=== PATIENT | female | born 1990 | race Two or more races ===

== ENCOUNTER 2020-02-01 10:49 | Inpatient (IN) | payer BC ==
[~2020-02-01] VITALS: Ht 154.9 cm; Wt 68.2 kg
[2020-02-01] MEDS ORDERED: SODIUM CHLORIDE 0.9% 500 ML IV ONE (10:52)
[2020-02-01] MEDS ORDERED: MORPHINE SULFATE 4 MG/ML SYR/VIAL IV ONE (11:00)
[2020-02-01] MEDS ORDERED: ONDANSETRON HCL 4 MG/2 ML VIAL IV ONE (11:00)
[2020-02-01 11:19] LABS: Basophils # (auto) 0.1 10 ^3/uL (0-0.2); Eosinophils # (auto) 0 10 ^3/uL (0-0.8)
[2020-02-01 11:22] LABS: Basophils % (auto) 0.8 % (0.0-2.0); Eosinophils % (auto) 0.1 % (0.0-7.0); Hematocrit 50.7 % (36.0-46.0); Hemoglobin 16.8 g/dL (12.2-16.2); Lymphocytes % (auto) 16.3 % (10.0-50.0); Mean Corpuscular Hemoglobin 30.1 pg (28.0-32.0); Mean Corpuscular Hgb Conc. 33.2 g/dL (32.0-36.0); Mean Corpuscular Volume 90.8 fL (80.0-100.0); Monocytes # (auto) 0.6 10 ^3/uL (0-1.3); Neutrophils # (auto) 14.7 10 ^3/uL (1.6-8.6); Neutrophils % (auto) 79.8 % (37.0-80.0); Nucleated Red Blood Cells % 0.1 %; Platelet Count (auto) 593 10^3/uL (140-450); Red Blood Cells 5.59 10^6/uL (4.0-5.20); White Blood Cell 18.4 10^3/uL (4.4-10.8)
[2020-02-01] MEDS ORDERED: cloNIDine HCL 0.1 MG TAB PO ONE (11:30)
[2020-02-01 11:43] LABS: Albumin 4.5 g/dL (3.4-5.0); Calcium 9.4 mg/dL (8.5-10.1); Potassium 3.4 mmol/L (3.5-5.1)
[2020-02-01 11:46] LABS: BUN/Creatinine Ratio 6.3; Bilirubin, Total 0.6 mg/dL (0.2-1.0); Total Protein 9.6 g/dL (6.4-8.2)
[2020-02-01] MEDS ORDERED: LACTATED RINGER'S 1,000 ML IV ONE (12:15)
[2020-02-01] MEDS ORDERED: cefTRIAXone 1GM/50ML D5W 50 ML IV ONE ×2 (12:15→14:00)
[2020-02-01] MEDS ORDERED: KETOROLAC TROMETH 30 MG/ML 1ML VIAL IV ONE (12:45)
[2020-02-01] MEDS: cloNIDine HCL 0.1 MG TAB PO PRN (13:39)
[2020-02-01] MEDS: SODIUM CHLORIDE 0.9% 1,000 ML IV SCH (13:40)
[2020-02-01] MEDS ORDERED: LORazepam 0.5 MG TAB PO PRN (13:45)
[2020-02-01] MEDS ORDERED: NITROGLYCERIN 0.4 MG SL TAB SL PRN (13:45)
[2020-02-01] MEDS ORDERED: MORPHINE SULF INJ 2 MG/ML SYRINGE 1ML IV PRN (13:45)
[2020-02-01] MEDS ORDERED: ALUM & MAG HYDROX-SIMETH LIQ(MAALOX) 30 ML PO PRN (13:45)
[2020-02-01] MEDS ORDERED: DOCUSATE SOD 100 MG CAP PO PRN (13:45)
[2020-02-01 14:19] LABS: Cholesterol 174 mg/dL (< 200); HDL Cholesterol 60 mg/dL (40-59); LDL Cholesterol 102 mg/dL (< 100); Triglycerides 116 mg/dL (< 150)
--- NOTE | 2020-02-01 17:55 | NUR ---
Telemetry admit from ER TREEYOSEPH admitted to Telemetry unit. No report received from ER. Patient oriented to primary RN, unit, room, bed, and unit policies regarding patient care and visiting hours. Patient now on continuous telemetry monitoring. Patient weighed by bedscale and encouraged to call if they need something. All questions and concerns addressed, patient verbalized understanding.
[2020-02-01 18:47] VITALS: BP 137/77
--- NOTE | 2020-02-01 19:00 | NUR ---
Opening Shift Note Assumed care of patient, awake and alert. No S/S of distress/SOB or pain. Instructed on POC and to call for assist PRN, will continue to monitor for changes Q1hr and PRN.
[2020-02-01 22:53] VITALS: BP 108/78
--- NOTE | 2020-02-02 04:00 | NUR ---
PATIENT WITH MIGRAINE Patient has 10/10 migraine. Patient said that the pain happened after she got up and tried to have a BM. Patient reported to have some nausea. Patient was screaming in pain. Patient put water on her head to be soothed with no relief. VS BP 184/105 HR 70 O2 98% on room air medication administered. see eMAR
[2020-02-02] MEDS: MORPHINE SULF INJ 2 MG/ML SYRINGE 1ML IV PRN (04:04)
[2020-02-02] MEDS: cloNIDine HCL 0.1 MG TAB PO PRN (04:05)
[2020-02-02] MEDS: ONDANSETRON HCL 4 MG/2 ML VIAL IV PRN (04:05)
[2020-02-02 04:12] LABS: Urine Bacteria FEW /hpf (None Seen); Urine Blood TRACE /uL (Negative); Urine Hyaline Cast FEW /lpf (0 - 2); Urine Mucus FEW (None Seen); Urine Specific Gravity 1.022 (1.001-1.035); Urine WBC 26 /hpf (0 - 5)
[2020-02-02 04:26] LABS: Alcohol, Urine < 3.0 mg/dL (0-10); Amphetamine Screen, Urine NEGATIVE (NEGATIVE); Barbiturate Scree,Urine NEGATIVE (NEGATIVE); Benzodiazephine Screen, Urine NEGATIVE (NEGATIVE); Cannabinoid Screen, Urine POSITIVE (NEGATIVE); Cocaine Screen, Urine NEGATIVE (NEGATIVE); Opiate Scree,Urine POSITIVE (NEGATIVE); Phencyclidine Screen, Urine NEGATIVE (NEGATIVE)
--- NOTE | 2020-02-02 04:53 | NUR ---
PAIN REASSESSMENT Patient is resting in bed with eyes closed at this time. No s/s of distress or discomfort noted. Will continue care.
[2020-02-02 05:18] VITALS: BP 137/88
--- NOTE | 2020-02-02 05:50 | NUR ---
BLOOD PRESSURE REASSESSMENT BP 166/105 HR 52
--- NOTE | 2020-02-02 06:12 | NUR ---
Called/paged Dr. Mckinley returned call at [phone]. informed of patients high blood /105 and the newer blood pressure after clonidine 166/105. said the decrease was acceptable.
[2020-02-02] MEDS: SODIUM CHLORIDE 0.9% 1,000 ML IV SCH (06:13)
--- NOTE | 2020-02-02 07:25 | NUR ---
Opening Shift Note Assumed care of patient, awake and alert. No S/S of distress/SOB, patient reports headache pain of 4/10, will medicate per MD orders. Updated on POC and instructed to call for assistance PRN. Bed locked in lowest position, side rails up x2, call light within reach. Will continue to monitor for changes Q1hr and PRN.
[2020-02-02 08:00] VITALS: BP 146/103
[2020-02-02] MEDS: HYDROcodone-ACET 5/325MG TAB PO PRN ×2 (08:04→12:03)
[2020-02-02] MEDS ORDERED: cefTRIAXone 1GM/50ML D5W 50 ML IV ONE (09:30)
[2020-02-02] MEDS ORDERED: AZITHROMYCIN 500MG/ 250ML 250 ML IV SCH (10:00)
[2020-02-02] MEDS: LISINOPRIL 10 MG TAB PO SCH (10:15)
[2020-02-02] MEDS: ACETAMINOPHEN 325 MG TAB PO PRN ×2 (11:25→19:20)
[2020-02-02 12:00] VITALS: BP 155/104
[2020-02-02 16:00] VITALS: BP 125/78
--- NOTE | 2020-02-02 19:10 | NUR ---
Opening Shift Note Assumed care of patient, awake and alert. No S/S of distress/SOB or pain. Instructed on POC and to call for assist PRN, will continue to monitor for changes Q1hr and PRN. Patient c/o 3 headache. Patient requested tylenol. 650mg tylenol given. Will re evaluate pain.
[2020-02-02] MEDS ORDERED: LIDOCAINE 2%HCL (LOCAL ANESTH.) INJ 10ml MDV IJ ONE (20:30)
--- NOTE | 2020-02-02 20:30 | NUR ---
MD LEAL AT BEDSIDE. PLANNING TO DO LUMBAR PUNCTURE AT THIS TIME.
[2020-02-02] MEDS ORDERED: LIDOCAINE HCL 2 %PF INJ 10ML AMP IJ ONE (20:45)
[2020-02-02 21:20] LABS: INR 1.08 (0.9-1.15); Partial Thromboplastin Time 23.6 sec (23.0-31.2)
[2020-02-02 21:37] VITALS: BP 146/96
--- NOTE | 2020-02-02 23:46 | NUR ---
ROUNDS monitor BP. BP 137/97 HR 70. Patient reports no headache at this time and no other symptoms. Encouraged patient to use call light and inform us if she starts to experience any symptoms or another headache. Patient verbalized understanding. No s/s of distress noted. Will continue care.
[2020-02-02 23:49] VITALS: BP 137/97
[2020-02-03] MEDS: HYDROcodone-ACET 5/325MG TAB PO PRN ×3 (02:00→21:30)
[2020-02-03 02:02] VITALS: BP 147/99
[2020-02-03 05:09] VITALS: BP 134/96
[2020-02-03 05:42] LABS: Basophils # (auto) 0.1 10 ^3/uL (0-0.2); Eosinophils # (auto) 0.1 10 ^3/uL (0-0.8); Eosinophils % (auto) 0.4 % (0.0-7.0); Hemoglobin 15.3 g/dL (12.2-16.2); White Blood Cell 11.6 10^3/uL (4.4-10.8)
[2020-02-03 05:43] LABS: Basophils % (auto) 0.8 % (0.0-2.0); Hematocrit 44.3 % (36.0-46.0); Lymphocytes # (auto) 3.7 10 ^3/uL (0.4-5.4); Lymphocytes % (auto) 31.6 % (10.0-50.0); Mean Corpuscular Hemoglobin 31.2 pg (28.0-32.0); Mean Corpuscular Hgb Conc. 34.6 g/dL (32.0-36.0); Monocytes # (auto) 0.7 10 ^3/uL (0-1.3); Monocytes % (auto) 5.7 % (0.0-12.0); Neutrophils # (auto) 7.1 10 ^3/uL (1.6-8.6); Neutrophils % (auto) 61.5 % (37.0-80.0); Platelet Count (auto) 484 10^3/uL (140-450); Red Blood Cells 4.92 10^6/uL (4.0-5.20)
[2020-02-03 05:57] LABS: BUN/Creatinine Ratio 11.3; Calcium 8.5 mg/dL (8.5-10.1); Potassium 3.5 mmol/L (3.5-5.1)
--- NOTE | 2020-02-03 07:25 | NUR ---
Opening Shift Note Assumed care of patient, awake and alert. No S/S of distress/SOB, patient denies pain at this time. Updated on POC and instructed to call for assistance PRN. Bed locked in lowest position, side rails up x2, call light within reach. Will continue to monitor for changes Q1hr and PRN.
[2020-02-03 08:53] VITALS: BP 151/84
[2020-02-03] MEDS: cefTRIAXone 1GM/50ML D5W 50 ML IV SCH (09:34)
[2020-02-03] MEDS: LISINOPRIL 10 MG TAB PO SCH (09:34)
[2020-02-03] MEDS: ACETAMINOPHEN 325 MG TAB PO PRN ×2 (09:40→16:49)
[2020-02-03] MEDS ORDERED: HCTZ 25 MG TAB PO ONE (10:15)
[2020-02-03] MEDS ORDERED: LIDOCAINE 2%HCL (LOCAL ANESTH.) INJ 20ML MDV ONE ×2 (11:19→11:39)
--- NOTE | 2020-02-03 12:17 | NUR ---
PATIENT BACK FROM RADIOLOGY LUMBAR PUNCTURE COMPLETED IN RADIOLOGY BY DR ARANDA. NO S/S OF DISTRESS, PATIENT REPORTS HEADACHE PAIN OF 6/10 WILL MEDICATE PER MD ORDERS. LOWER BACK BANDAID IS CLEAN AND DRY. WILL CONTINUE TO MONITOR.
[2020-02-03 13:02] LABS: Protein, CSF 33.8 mg/dL (15-45)
[2020-02-03 13:28] LABS: CSF White Blood Cells 2 CUMM (0-5)
[2020-02-03 16:50] VITALS: BP 124/84
[2020-02-03] MEDS: ONDANSETRON HCL 4 MG/2 ML VIAL IV PRN (17:17)
[2020-02-03] MEDS: MORPHINE SULF INJ 2 MG/ML SYRINGE 1ML IV PRN (17:18)
--- NOTE | 2020-02-03 17:24 | NUR ---
PATIENT WITH MIGRAINE AND NUMBNESS IN FINGERS Patient has 10/10 migraine. Patient said that the pain happened after she started throwing up. Patient was screaming in pain. Patient given ice pack and placed on 2L 02 via NC. VS BP 173/117 HR 86 RR 24 O2 100% medication administered. see eMAR
--- NOTE | 2020-02-03 17:30 | NUR ---
MD LEAL PAGED REGARDING LAST NOTE
--- NOTE | 2020-02-03 17:33 | NUR ---
HOSPITALIST PAGED REGARDING BP PATIENT STATES SHE CAN NOT SWALLOW AT THIS TIME, THAT HER TONGUE FEELS NUMB AND SHE IS IN TOO MUCH PAIN. WILL AWAIT ORDERS
[2020-02-03] MEDS: cloNIDine HCL 0.1 MG TAB PO PRN (17:46)
--- NOTE | 2020-02-03 18:25 | NUR ---
SPOKE TO MD OTOOLE RECEIVED NEW ORDERS, WILL INPUT AND FOLLOW THROUGH.
[2020-02-03] MEDS ORDERED: LISINOPRIL 20 MG TAB PO ONE (18:30)
[2020-02-03] MEDS ORDERED: GABAPENTIN 300 MG CAP PO ONE (18:30)
[2020-02-03] MEDS ORDERED: hydrALAZINE HCL 20 MG/ML VL IV PRN (18:30)
--- NOTE | 2020-02-03 19:45 | NUR ---
Opening Shift Note Assumed care of patient, asleep at this time. No S/S of distress/SOB or pain. Bed in lowest and locked position, call light within reach, will continue to monitor
[2020-02-03] MEDS ORDERED: DexAMETHasone INJECTION 10 MG in D5W 5% 50 ML IV ONE (20:45)
--- NOTE | 2020-02-03 20:45 | NUR ---
Dr. Umanzor at bedside
[2020-02-03 21:00] VITALS: BP 109/71
[2020-02-03] MEDS: METOCLOPRAMIDE HCL 10 MG TAB PO SCH (21:20)
[2020-02-03] MEDS: SODIUM CHLORIDE 0.9% 1,000 ML IV SCH (21:21)
[2020-02-03] MEDS: VALPROATE INJ 1,000 MG in D5W 5% 50 ML IV SCH (22:04)
[2020-02-04 05:00] VITALS: BP 127/87
[2020-02-04 05:35] LABS: Basophils # (auto) 0.1 10 ^3/uL (0-0.2); Basophils % (auto) 0.9 % (0.0-2.0); Eosinophils # (auto) 0 10 ^3/uL (0-0.8); Hematocrit 45.2 % (36.0-46.0); Hemoglobin 15.1 g/dL (12.2-16.2); Lymphocytes # (auto) 1.1 10 ^3/uL (0.4-5.4); Lymphocytes % (auto) 10.5 % (10.0-50.0); Mean Corpuscular Hemoglobin 30.7 pg (28.0-32.0); Mean Corpuscular Hgb Conc. 33.5 g/dL (32.0-36.0); Mean Corpuscular Volume 91.7 fL (80.0-100.0); Monocytes # (auto) 0.1 10 ^3/uL (0-1.3); Monocytes % (auto) 0.7 % (0.0-12.0); Neutrophils # (auto) 9.5 10 ^3/uL (1.6-8.6); Neutrophils % (auto) 87.9 % (37.0-80.0); Nucleated Red Blood Cells % 0.1 %; Platelet Count (auto) 450 10^3/uL (140-450); Red Blood Cells 4.93 10^6/uL (4.0-5.20); Red Cell Distribution Width 13.8 % (11.8-14.3); White Blood Cell 10.8 10^3/uL (4.4-10.8)
[2020-02-04] MEDS: SODIUM CHLORIDE 0.9% 1,000 ML IV SCH (05:38)
[2020-02-04 05:51] LABS: BUN/Creatinine Ratio 13.1; Calcium 8.3 mg/dL (8.5-10.1); Potassium 3.7 mmol/L (3.5-5.1)
[2020-02-04] MEDS: METOCLOPRAMIDE HCL 10 MG TAB PO SCH (06:24)
--- NOTE | 2020-02-04 07:30 | NUR ---
Opening Shift Note Assumed care of patient, awake, alert, and oriented. No S/S of distress/SOB or pain. Bed in lowest/locked position, bed rails up x2, call light within reach. Instructed on POC and to call for assist PRN. Will continue to monitor for changes Q1hr and PRN.
[2020-02-04] MEDS: cefTRIAXone 1GM/50ML D5W 50 ML IV SCH (08:52)
[2020-02-04 09:00] VITALS: BP 112/69
[2020-02-04] MEDS: LISINOPRIL 10 MG TAB PO SCH (09:49)
[2020-02-04] MEDS ORDERED: HCTZ 25 MG TAB PO SCH (10:00)
[2020-02-04] MEDS ORDERED: DexAMETHasone INJECTION 10 MG in D5W 5% 50 ML IV SCH (10:00)
--- NOTE | 2020-02-04 10:05 | NUR ---
MD ROUNDS DR BARRETT AT BEDSIDE. NEW ORDERS RECEIVED/WILL CARRY OUT. WILL CONTINUE TO MONITOR
[2020-02-04] MEDS ORDERED: LORazepam 2MG/ML-1ML VIAL IV ONE (10:15)
[2020-02-04] MEDS: VALPROATE INJ 1,000 MG in D5W 5% 50 ML IV SCH (10:34)
--- NOTE | 2020-02-04 13:28 | NUR ---
Discharge instructions given as ordered. Encourage to follow up with PMD as instructed. All questions and concerns addressed. Patient verbalized understanding. IV removed with catheter intact, pressure dressing applied. Telemetry unit returned to ICU. Patient taken to vehicle via wheelchair with all personal belongings, accompanied by staff. No distress noted at time of departure.
== END 2020-02-04 13:30 | disposition home or self-care (01) | DRG 102 ==
LOC: ER 10:49 → TELE 10:50 → TELE-CENTR 17:42
PROVIDERS: ADMIT Hospitalist; ATTEND Internal Medicine
PROC: 009U3ZX Drainage of Spinal Canal, Percutaneous Approach, Diagnostic (ICD-10-PCS; principal; 2020-02-03)
PROC: B01B1ZZ Fluoroscopy of Spinal Cord using Low Osmolar Contrast (ICD-10-PCS; 2020-02-03)
DX: G43.109 Migraine with aura, not intractable, without status migrainosus (principal); J18.9 Pneumonia, unspecified organism; N39.0 Urinary tract infection, site not specified; N17.9 Acute kidney failure, unspecified; F17.210 Nicotine dependence, cigarettes, uncomplicated; E66.9 Obesity, unspecified; I12.9 Hypertensive chronic kidney disease with stage 1 through stage 4 chronic kidney disease, or unspecified chronic kidney disease; F12.90 Cannabis use, unspecified, uncomplicated; E11.22 Type 2 diabetes mellitus with diabetic chronic kidney disease; N18.9 Chronic kidney disease, unspecified; E87.6 Hypokalemia; D47.3 Essential (hemorrhagic) thrombocythemia; Z83.3 Family history of diabetes mellitus; Z80.9 Family history of malignant neoplasm, unspecified; Z82.49 Family history of ischemic heart disease and other diseases of the circulatory system; Z79.899 Other long term (current) drug therapy; Z91.010 Allergy to peanuts; Z68.28 Body mass index [BMI] 28.0-28.9, adult
CPT/HCPCS: 36415; 62272; 70450; 70551; 71046; 80048; 80053; 80061; 80307; 81001; 81025; 82945; 83036; 84157; 84484; 84702; 85025; 85610; 85730; 87040; 87070; 87086; 87205; 89051; 96361; 96365; 96368; 96375; G0378; J0696; J1100; J1885; J2001; J2405; J7060

== ENCOUNTER → 2023-02-19 | Outpatient (CLI) | payer OTHER ==
[2023-02-19 10:47] LABS: Eosinophils # (auto) 0.8 10 ^3/uL (0-0.8); Hematocrit 44.1 % (36.0-46.0); Hemoglobin 14.8 g/dL (12.2-16.2); Neutrophils # (auto) 6.3 10 ^3/uL (1.6-8.6); Red Cell Distribution Width 15.1 % (11.8-14.3)
[2023-02-19 10:48] LABS: Basophils # (auto) 0.2 10 ^3/uL (0-0.2); Basophils % (auto) 1.5 % (0.0-2.0); Eosinophils % (auto) 7.3 % (0.0-7.0); Lymphocytes # (auto) 3.2 10 ^3/uL (0.4-5.4); Lymphocytes % (auto) 28.6 % (10.0-50.0); Mean Corpuscular Hemoglobin 29.2 pg (28.0-32.0); Mean Corpuscular Hgb Conc. 33.5 g/dL (32.0-36.0); Mean Corpuscular Volume 87.1 fL (80.0-100.0); Monocytes # (auto) 0.6 10 ^3/uL (0-1.3); Monocytes % (auto) 5.2 % (0.0-12.0); Neutrophils % (auto) 57.4 % (37.0-80.0); Red Blood Cells 5.06 10^6/uL (4.0-5.20)
[2023-02-19 11:25] LABS: Urine Bacteria FEW /hpf (None Seen); Urine Blood 2+ /uL (Negative); Urine Clarity Clear (Clear); Urine Color Yellow (Yellow); Urine Mucus FEW (None Seen); Urine Protein, UAD TRACE (Negative); Urine Specific Gravity 1.018 (1.001-1.035); Urine Urobilinogen Normal (Negative); Urine WBC 1 /hpf (0 - 5)
[2023-02-19 12:09] LABS: Alanine Aminotransferase 18 U/L (7-40); Albumin 4.7 g/dL (3.2-4.8); Alkaline Phosphatase 109 U/L (46-116); Anion Gap 5.7 (5-15); Aspartate Aminotransferase 13 U/L (13-40); Calcium 8.9 mg/dL (8.5-10.1); Carbon Dioxide 26.3 mmol/L (20-30); Chloride 105 mmol/L (98-107); Glucose 113 mg/dL (74-106); Potassium 3.5 mmol/L (3.5-5.1); Sodium 137 mmol/L (136-145)
[2023-02-19 12:10] LABS: BUN/Creatinine Ratio 7.9 (10.0-20.0); Blood Urea Nitrogen 7 mg/dL (9-23); Cholesterol 137 mg/dL (< 200); Triglycerides 138 mg/dL (< 150)
[2023-02-19 12:11] LABS: LDL Cholesterol 75 mg/dL (< 100)
[2023-02-19 12:12] LABS: Bilirubin, Total 0.5 mg/dL (0.2-1.0); HDL Cholesterol 51 mg/dL (40-59); Total Protein 7.9 g/dL (5.7-8.2)
== END | disposition home or self-care (01) ==
LOC: LAB 10:17
PROVIDERS: ATTEND Nurse Practitioner
DX: I10 Essential (primary) hypertension (principal); E78.5 Hyperlipidemia, unspecified
CPT/HCPCS: 36415; 80053; 80061; 81001; 84443; 85025